=== PATIENT | female | born 1980 | race Caucasian/White ===

== ENCOUNTER 2018-09-25 13:27 | Emergency (ER) | payer SELFPAY ==
[~2018-09-25] VITALS: Ht 157.5 cm; Wt 112.7 kg
[2018-09-25 13:37] VITALS: BP 133/99; PULSE 61
== END 2018-09-25 14:42 | disposition home or self-care (01) ==
LOC: COL.ER 13:27
DX: M54.6 Pain in thoracic spine (principal); F17.210 Nicotine dependence, cigarettes, uncomplicated; Z98.51 Tubal ligation status
CPT/HCPCS: J1885

== ENCOUNTER 2020-09-20 20:37 | Emergency (ER) | payer BC ==
[~2020-09-20] VITALS: Ht 157.5 cm; Wt 102.3 kg
[2020-09-20 20:47] VITALS: TEMP 98.1
[2020-09-20 22:26] LABS: BASO % 0.5 % (0.0-2.0); EOS # 0.2 (0.0-0.7); EOS % 2.3 % (0-4.0); GRAN # 3.3 (1.4-6.5); GRAN % 51.6 % (42.2-75.2); LYMPH # 2.5 (1.2-3.4); LYMPH % 39.5 % (20.0-51.0); MEAN CELL VOLUME 70 fl (80.0-100.0); MEAN CORPUSCULAR HGB CONC 33 g/dl (33.0-37.0); MEAN PLATELET VOLUME 10.5 fl (7.4-10.4); MONO # 0.4 (0.1-0.6); MONO % 5.9 % (1.7-9.3); PLATELET COUNT 381 K/mm3 (130-400); RED BLOOD COUNT 4.21 M/mm3 (4.10-5.30); REDCELL DISTRIBUTION WIDTH-CV 20.3 % (11.5-14.5)
[2020-09-20 22:27] LABS: HEMATOCRIT 29.4 % (37.0-47.0); HEMOGLOBIN 9.6 g/dl (12.5-16.0); MEAN CORPUSCULAR HEMOGLOBIN 23 pg (27.0-31.0)
[2020-09-20 22:35] LABS: ANION GAP 6 mmol/L (7-16); CARBON DIOXIDE 26 mmol/L (22-30); CHLORIDE 106 mmol/L (98-107); CREATININE, serum 0.72 (0.52-1.25); GLUCOSE 87 mg/dL (74-106); INR 1.1 (0.8-3.0); POTASSIUM 3.8 mmol/L (3.4-5.0); PROTHROMBIN TIME 12.2 SECONDS (9.7-12.8); SODIUM 137 mmol/L (137-145)
[2020-09-20 22:37] LABS: PARTIAL THROMBOPLASTIN TIME 31.1 SECONDS (26.0-37.0)
[2020-09-20 22:44] VITALS: BP 143/91; PULSE 72
== END 2020-09-20 22:44 | disposition home or self-care (01) ==
LOC: COL.ER 20:37
PROVIDERS: Emergency Medicine
DX: N93.9 Abnormal uterine and vaginal bleeding, unspecified (principal); D64.9 Anemia, unspecified; Z32.02 Encounter for pregnancy test, result negative